=== PATIENT | female | born 1995 | race Two or more races ===

== ENCOUNTER 2024-01-14 14:27 | Emergency (ER) | payer OTHER ==
[2024-01-14 14:46] VITALS: BP 115/62; PULSE 74; RESP 20; TEMP 98.6; BMI 26.1
[2024-01-14] MEDS: ACETAMINOPHEN 500 MG TABLET (FP) PO ONE (15:37)
[2024-01-14] MEDS: LIDOCAINE 5% TOPICAL PATCH TP ONE (15:38)
[2024-01-14 15:57] LABS: HEMATOCRIT 41.2 % (32.4-45.2); HEMOGLOBIN 13.5 G/dL (10.7-15.3); MCH 27.3 pg (25.7-33.7); MCHC 32.7 g/dl (32.0-36.0); MEAN CELL VOLUME 83.3 fl (80-96); PLATELET COUNT 287.6 10^3/uL (134-434); RBC 4.95 10^6/uL (3.60-5.2); RDW 13.9 % (11.6-15.6)
[2024-01-14 16:10] LABS: ALBUMIN 4.2 g/dl (3.4-5.0); ALK PHOS 60 U/L (45-117); ANION GAP 6 mmol/L (4-13); BILIRUBIN,TOTAL 0.3 mg/dl (0.2-1); CALCIUM 9.3 mg/dl (8.5-10.1); CHLORIDE 105 mmol/L (98-107); CO2 24 mmol/L (21-32); CREATININE 0.8 mg/dl (0.6-1.3); GLUCOSE,RANDOM 83 mg/dl (74-106); POTASSIUM 3.7 mmol/L (3.5-5.1); SGOT/AST 16 U/L (15-37); SGPT/ALT 21 U/L (7-52); SODIUM 135 mmol/L (136-145); TOT PROT 7.3 g/dl (6.4-8.2)
[2024-01-14] MEDS ORDERED: LIDOCAINE PATCH REMOVAL MC SCH (22:00)
== END 2024-01-14 16:38 | disposition home or self-care (01) ==
LOC: FER 14:27
DX: R07.81 Pleurodynia (principal); M54.9 Dorsalgia, unspecified
CPT/HCPCS: 36415; 71046-TC-FY; 80053; 84484; 84703; 85027; 85379; 93005; 99285-25